=== PATIENT | male | born 1945 | race Caucasian/White ===

== ENCOUNTER 2018-12-30 11:03 | Inpatient (IN) ==
--- NOTE | 2018-12-30 11:34 | EKG Report ---
Test Performed on : 12/30/2018 11:32:26 AM Test Reason : syncope Blood Pressure : / mmHG Vent. Rate : 080 BPM Atrial Rate : 080 BPM P-R Int : 142 ms QRS Dur : 074 ms QT Int : 364 ms P-R-T Axes : 047 003 032 degrees QTc Int : 419 ms Normal sinus rhythm. Normal ECG When compared with ECG of 01-DEC-2018 09:44, premature ventricular complexes. are no longer present Unconfirmed Result
[2018-12-30 13:32] LABS: BASO# 0.01 X1000 (0.0-0.2); BASO% 0.2 % (0.0-0.8); EOS# 0.58 X1000 (0.0-0.7); HEMATOCRIT 37.6 % (42.0-52.0); HEMOGLOBIN 11.6 g/dL (14.0-18.0); LYMPH# 1.43 X1000 (1.2-3.4); LYMPH% 22.2 % (20.5-51.1); MCH 28.9 PG (27-31); MCHC 30.9 g/dL (33-37); MCV 93.5 FL (81-99); MONO# 0.54 X1000 (0.11-0.59); MONO% 8.4 % (1.7-9.3); NEUT# 3.88 X1000 (1.4-6.5); NEUT% 60.2 % (42.2-75.2); PLT 270 X1000 (130-400); RBC 4.02 XMIL (4.7-6.1); WBC 6.44 X1000 (4.8-10.8)
[2018-12-30 14:23] LABS: ALB/GLOB RATIO 1.2; CALCIUM 9.4 mg/dL (8.8-10.2); CREATININE 1.3 mg/dL (0.7-1.2); POTASSIUM 5.5 mmol/L (3.5-5.1); TOTAL BILIRUBIN 0.22 mg/dL (0.20-1.00); TOTAL PROTEIN 7.3 g/dL (6.3-8.3)
--- NOTE | 2018-12-30 17:16 | PROVIDER DOCUMENTATION ---
HPI-Syncope/Dizziness - General Chief Complaint: Syncope Stated Complaint: PASSED OUT Time Seen by Provider: 12/30/18 16:44 Allergies/Adverse Reactions: Patient Allergies Allergy/AdvReac Type Severity Reaction Status Date / Time No Known Allergies Allergy Verified 12/07/18 05:32 Home Medications: Home Medication List Medication Instructions Recorded Confirmed Last Taken Type Diclofenac Na D.r. [Voltaren] 75 mg PO BID 12/01/18 12/07/18 12/03/18 History Divalproex [Depakote] 250 mg PO BID 12/01/18 12/07/18 12/06/18 08:00 History LISINOpril [Prinivil] 5 mg PO DAILY 12/01/18 12/07/18 12/06/18 08:00 History Menthol [Absorbine Jr] 1 each TP PRN PRN 12/01/18 12/07/18 Unknown History Metoclopramide [Reglan] 10 mg PO AC + HS 12/01/18 12/07/18 12/06/18 08:00 History Mirtazapine [Remeron] 0.5 tab PO QHS 12/01/18 12/07/18 12/06/18 20:00 History Omeprazole [Prilosec] 40 mg PO DAILY 12/01/18 12/07/18 12/06/18 08:00 History Pitavastatin [Livalo] 2 mg PO DAILY 12/01/18 12/07/18 12/06/18 20:00 History Risperidone [Risperdal] 0.5 mg PO QHS 12/01/18 12/07/18 12/06/18 20:00 History Hydrocodone/APAP 7.5 mg/325 mg 1 each PO Q4H PRN #10 tablet 12/07/18 Unknown Rx [[place]-7.5] Levofloxacin [Levaquin] 500 mg PO ONCE 12/07/18 12/07/18 12/06/18 20:00 History Oxybutynin [Ditropan] 5 mg PO TID PRN #30 tablet 12/08/18 Unknown Rx - History of Present Illness-Syncope/Dizzy Nature of Presenting Problem: Pt is 73 yo male, with developmental delay, resides in senior care. According to ed case manager, around 10:00am today, pt was standing up talking to her and c/o dizziness, then fell backwards, ed case manager caught him and they both fell to the floor. Pt c/o R shoulder pain. Denies hitting head. Denies n/v. Denies loc. Alex e worker states he was alert and talking the entire time. Denies cp or sob. 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 Pt has pmh of HTN and hyperlipidemia. If witnessed syncope, by whom?: ed case manager at senior care Prior Episodes: reports: no prior history Timing: reports: gone now Position/Activity at time of episode: reports: standing Symptoms prior to episode: reports: lightheaded Context: reports: almost passed out Loss of Consciousness: no loss of consciousness Location of injury. (If syncope resulted in an injury.): reports: RUE Current Symptoms: reports: none/feels normal Recently Seen Here or By Another Healthcare Provider: No - Dizziness Patient usually:: reports: walks without assistance Review of Systems - Adult - REVIEW OF SYSTEMS - ADULT Constitutional: denies: fever Eyes: reports: no symptoms reported Ears, Nose, Mouth & Throat: reports: no symptoms reported Cardiovascular: denies: chest pain Respiratory: denies: shortness of breath Gastrointestinal: denies: abdominal pain, nausea, vomiting Genitourinary: reports: no symptoms reported Musculoskeletal: reports: joint pain (shoulder pain) Integumentary: reports: no symptoms reported Neurological: reports: dizziness/vertigo. denies: headache/migraines, numbness, syncope Psychiatric: denies: no symptoms reported Endocrine: reports: no symptoms reported Hematologic/Lymphatic: reports: no symptoms reported Allergic/Immunologic: reports: no symptoms reported All Other Systems: Reviewed and Negative Past History - Adult - PAST MEDICAL HISTORY-ADULT Review of Records: reports: Nursing Assessment Review, Medications Reviewed, Social history reviewed & non-contributory. Physical Exam-General - PHYSICAL EXAM-ADULT Initial Vital Signs Reviewed: Yes - CONSTITUTIONAL General Appearance: appears well, alert, no apparent distress - EYES Eyes: PERRL/EOMI, pink conjunctivae - HEAD, EARS, NOSE, MOUTH & THROAT HENMT: normocephalic/atraumatic, moist mucous membranes - NECK Neck: supple - RESPIRATORY Respiratory: lungs clear, normal breath sounds, no respiratory distress - CARDIOVASCULAR Cardiovascular: regular rate, rhythm - MUSCULOSKELETAL Back Exam: decreased range of motion (R shoulder--tender to all areas palpated, rom limited by pain, n/v intact) Peripheral Pulses: radial (R): 2+, radial (L): 2+ - SKIN Integumentary: normal color, normal turgor, warm/dry - NEUROLOGIC Neurologic: grossly normal - PSYCHIATRIC Psych/Mental Status: normal mood/affect Progress - PLAN OF CARE/RESULTS Progress/Plan/Lab Results: Vital Signs - 8 hr 12/30/18 18:09 12/30/18 21:00 12/30/18 22:00 Temperature 98.3 F Pulse Rate 87 82 73 Pulse Rate [Sitting] Pulse Rate [Supine] Respiratory Rate 18 14 19 Blood Pressure 93/65 128/79 121/77 Blood Pressure [Sitting] Blood Pressure [Supine] O2 Sat by Pulse Oximetry 96 96 94 L 12/30/18 23:00 12/30/18 23:56 Temperature Pulse Rate 85 Pulse Rate [Sitting] 129 H Pulse Rate [Supine] 130 H Respiratory Rate 20 Blood Pressure Blood Pressure [Sitting] 104/60 Blood Pressure [Supine] 103/57 O2 Sat by Pulse Oximetry 97 12/30/18 21:24 Stool Occult Blood (ANN-MARIE) - Final Stool Laboratory Results - last 24 hr 12/30/18 12/30/18 12/30/18 11:30 11:30 11:30 WBC 6.44 RBC 4.02 L Hgb 11.6 L Hct 37.6 L MCV 93.5 MCH 28.9 MCHC 30.9 L RDW Std Deviation 14.0 Plt Count 270 MPV 10.0 Immature Gran % (Auto) 0.0 Neut % (Auto) 60.2 Lymph % (Auto) 22.2 [place] % (Auto) 8.4 Eos % (Auto) 9.0 Baso % (Auto) 0.2 Immature Gran # (Auto) 0.00 Neut # (Auto) 3.88 Lymph # (Auto) 1.43 [place] # (Auto) 0.54 Eos # (Auto) 0.58 Baso # (Auto) 0.01 Sodium 143 Potassium 5.5 H Chloride 106 Carbon Dioxide 24 L Anion Gap 13 BUN 22 Creatinine 1.3 H Estimated GFR/1.73 m2 54 BUN/Creatinine Ratio 17 Glucose 92 Calculated Osmolality 288 Calcium 9.4 Magnesium 1.9 Total Bilirubin 0.22 AST 16 ALT 9 L Alkaline Phosphatase 69 Troponin T Total Protein 7.3 Albumin 4.0 Globulin 3.3 Albumin/Globulin Ratio 1.2 Urine Source Urine Color Urine Clarity Urine pH Ur Specific [place] Urine Protein Urine Ketones Urine Blood Urine Nitrite Urine Bilirubin Urine Urobilinogen Urine Microscopic RBC Urine WBC Urine Microscopic WBC Ur Epithelial Cells Urine Bacteria Urine Glucose 12/30/18 12/30/18 11:30 20:24 WBC RBC Hgb Hct MCV MCH MCHC RDW Std Deviation Plt Count MPV Immature Gran % (Auto) Neut % (Auto) Lymph % (Auto) [place] % (Auto) Eos % (Auto) Baso % (Auto) Immature Gran # (Auto) Neut # (Auto) Lymph # (Auto) [place] # (Auto) Eos # (Auto) Baso # (Auto) Sodium Potassium Chloride Carbon Dioxide Anion Gap BUN Creatinine Estimated GFR/1.73 m2 BUN/Creatinine Ratio Glucose Calculated Osmolality Calcium Magnesium Total Bilirubin AST ALT Alkaline Phosphatase Troponin T < 0.010 Total Protein Albumin Globulin Albumin/Globulin Ratio Urine Source CLEAN CATCH Urine Color YELLOW Urine Clarity CLEAR Urine pH 6.5 Ur Specific [place] 1.020 Urine Protein 30 A Urine Ketones NEGATIVE Urine Blood TRACE-INTACT A Urine Nitrite NEGATIVE Urine Bilirubin NEGATIVE Urine Urobilinogen 1.0 Urine Microscopic RBC <10 Urine WBC SMALL A Urine Microscopic WBC <10 Ur Epithelial Cells <10 Urine Bacteria NEGATIVE Urine Glucose NEGATIVE Orders Category Date Time Status Cardiac Monitoring DIRECTED Care 12/30/18 19:03 Active Orthostatic Vital Signs NOW Care 12/30/18 17:09 Active Orthostatic Vital Signs NOW Care 12/30/18 19:03 Active CHEST-2 VIEWS [RAD] Stat Exams 12/30/18 17:[address] HEAD W/O CONTRAST [CT] Stat Exams 12/30/18 19:02 Completed TRAUMA SHOULDER RIGHT [RAD] Stat Exams 12/30/18 16:57 Completed BLOOD CULTURE [BLDCUL] Stat Lab 12/30/18 23:52 Uncollected CBC WITH ELECTRONIC DIFF [HEME] Stat Lab 12/30/18 11:30 Completed COMPREHENSIVE METABOLIC PANEL [CHEM] Stat Lab 12/30/18 11:30 Completed LACTATE, PLASMA [CHEM] Stat Lab 12/30/18 23:52 Uncollected MAGNESIUM [CHEM] Stat Lab 12/30/18 11:30 Completed OCCULT BLOOD SCREENING [STOOL] Stat Lab 12/30/18 21:24 Completed TROPONIN T Stat Lab 12/30/18 11:30 Completed URINALYSIS [URINALYSIS] Stat Lab 12/30/18 20:22 Ordered 0.9% Sodium Chloride Inj [Ns] 500 ml Med 12/30/18 23:52 Discontinued IV 999 mls/hr Albuterol 0.5% INH Conc [Albuterol 0.5% INH Conc For Med 12/30/18 22:28 Discontinued Hyperkalemia] 25 mg INH NOW ONE Piperacillin/Tazobactam [Zosyn] 3.375 gm Med 12/30/18 23:53 Discontinued 0.9% Sodium Chloride Inj [Ns] 50 ml IV NOW Aerosol Treatments Routine Oth 12/30/18 22:29 Completed Aerosol Treatments Stat Oth 12/30/18 22:29 Completed Generalized Adult Illness >60 Stat Oth 12/30/18 11:28 Ordered EKG [EKG] Stat Ther 12/30/18 11:29 Draft EKG [EKG] Stat Ther 12/30/18 19:03 Ordered 2353- BP 83/66 and HR 133 (sinus tachycardia). Discussed admission with pt who is in agreement. skilled nursing staff member asks that I allow him to speak with senior care leader/epic manager before I call HPS. Pt is awake and alert at this time. 0007- Dr. Esteban at bedside, pt still hypotensive but no change in neurological status is noted since previous assessment. Result Diagrams: 12/30/18 11:30 12/30/18 11:30 - XRAY 1 XRAY Study: Shoulder ([facility] [address] , [address], [place] [address] Department of Imaging Patient: MARIE PRADO Date: 12/30/18#: [id number] : 5ADM Status: PRE ERAcct#: [id number] Age/Sex: 73/MRoom/Bed: Loc: ED Ordering Physician: Dorys Webb Family Physician: Wally Cevallos MD Reason for Procedure: fall; R shoulder pain Signed TRAUMA SHOULDER RIGHT - 12/30/2018 INDICATION: fall; R shoulder pain TECHNIQUE: Three views COMPARISON: None FINDINGS: Bones are intact and normally aligned. There are mild degenerative changes of the glenohumeral joint. Acromioclavicular joint is well-preserved. IMPRESSION: No acute injury. Electronically signed by Clifton Valencia 12/30/2018 6:07 PM 12/30/18 1807 Interpreting Physician: Clifton Valencia MD Dictated Date/Time: 12/30/18 180 cc: Dorys Webb; Wally Cevallos MD) 2 XRAY Study: Chest ([facility] [address], [address], [place] [address] Department of Imaging Patient: MARIE PRADO Date: 12/30/18#: [id number] : 1945DM Status: PRE ERAcct#: [id number] Age/Sex: 73/MRoom/Bed: Loc: ED Ordering Physician: Dorys Webb Family Physician: Wally Cevallos MD Reason for Procedure: dizziness Signed CHEST- 2 VIEWS - 12/30/2018 INDICATION: dizziness COMPARISON: None FINDINGS: The lungs are normally expanded and clear. Heart size and mediastinal contours are normal. No pneumothorax or pleural effusion. IMPRESSION: Negative exam. Electronically signed by Clifton Valencia 12/30/2018 6:35 PM 12/30/18 1835 Interpreting Physician: Clifton Valencia MD Dictated Date/Time: 12/30/18 183 cc: Dorys Webb; Wally Cevallos MD) - CT/MRI 1 CT Study: Head ([facility] [address], [address], [place] [address] Department of Imaging Patient: MARIE PRADO Date: 12/30/18#: [id number] : 5ADM Status: PRE ERAcct#: [id number] Age/Sex: 73/MRoom/Bed: Loc: ED Ordering Physician: Haseeb Lamas Family Physician: Wally Cevallos MD Reason for Procedure: dizziness, near syncope Signed CT HEAD W/O CONTRAST - 12/30/2018 INDICATION: dizziness, near syncope COMPARISON: None FINDINGS: The ventricles and sulci are normal in size and contour. No intracranial mass or hemorrhage. The skull is intact. The sinuses mastoids and middle ears are clear. IMPRESSION: Negative exam. This exam was performed using automated exposure control, adjustment of mA or kV according to patient size, and/or use of iterative reconstruction technique Electronically signed by Clifton Valencia 12/30/2018 8:03 PM 12/30/182002 Interpreting Physician: Clifton Valencia MD Dictated Date/Time: 12/30/181999 cc: Haseeb Lamas; Wally Cevallos MD) - CONSULTS/PCP/HOSPITALIST Notification #1 *Consult/PCP/Hospitalist*: Dr. Esteban Time Discussed: 00:05 Reason/Comments: admission Consult Disposition: Admit - CHANGE OF SHIFT REPORT (ED Provider) 1 Report Given and Care Transferred to:: [place] Time of Transfer: 17:58 Departure - Departure Date of Disposition Decision: 12/31/18 Time of Disposition Decision: 00:05 DIAGNOSIS: Syncope Qualifiers: Syncope type: unspecified Qualified Code(s): R55 - Syncope and collapse Hypotension Qualifiers: Hypotension type: unspecified hypotension type Qualified Code(s): I95.9 - Hypotension, unspecified Disposition: ADMITTED INPATIENT 09 Certified Medical Emergency: Emergent Condition: Stable Referrals and Follow-Ups: Wally Cevallos MD [Primary Care Provider] - - Critical Care Note This patient required my direct & personal management of CC.: No Attestation - Physician/ KRYSTAL Attestation Patient care was provided by Advanced Practice Provider:: Yes Advanced Practice Provider:: Haseeb Lamas Advanced Practice Provider documentation review:: The Mid-level provider documentation, treatment plan and medical decision making was reviewed by the physician who agrees with all treatment and medical decision making by the MLP. The physician spent face to face time with patient:: No Advanced Practice Provider documentation review:: Supervising physician onsite and consulted in the evaluation and care of this patient. The physician did not have a face to face encounter with the patient.
--- NOTE | 2018-12-30 17:22 | ED EKG INTERP ---
This chart was entered by Jenn Cannon Scribe, acting as scribe for Wally Joiner MD. EKG Interpretation - EKG Time of EKG reading by physician:: 11:36 EKG Read and Signed by:: Wally Joiner EKG Interpretation (*Must complete 3 of following elements*): Normal Rate: 80 Rhythm: NSR [place]: normal QRS: normal [place] Interval: normal ST Wave: normal Attestation - Physician/ KRYSTAL Attestation Patient care was provided by Advanced Practice Provider:: Yes Advanced Practice Provider documentation review:: The Mid-level provider documentation, treatment plan and medical decision making was reviewed by the physician who agrees with all treatment and medical decision making by the MLP. The physician spent face to face time with patient:: Yes Advanced Practice Provider documentation review:: Supervising physician onsite and consulted in the evaluation and care of this patient. The physician did have a face to face encounter with the patient. This chart was documented by the indicated scribe, (Jenn Cannon Scribe) and accurately reflects the services I performed and decisions made by Rhys campos Robert W., MD, as attested by the provider's signature.
--- NOTE | 2018-12-30 18:09 | Diag Imaging Result Doc PS360 ---
TRAUMA SHOULDER RIGHT - 12/30/2018 INDICATION: fall; R shoulder pain TECHNIQUE: Three views COMPARISON: None FINDINGS: Bones are intact and normally aligned. There are mild degenerative changes of the glenohumeral joint. Acromioclavicular joint is well-preserved. IMPRESSION: No acute injury. Electronically signed by Clifton Valencia 12/30/2018 6:07 PM
--- NOTE | 2018-12-30 18:37 | Diag Imaging Result Doc PS360 ---
CHEST-2 VIEWS - 12/30/2018 INDICATION: dizziness COMPARISON: None FINDINGS: The lungs are normally expanded and clear. Heart size and mediastinal contours are normal. No pneumothorax or pleural effusion. IMPRESSION: Negative exam. Electronically signed by Clifton Valencia 12/30/2018 6:35 PM
--- NOTE | 2018-12-30 20:06 | Diag Imaging Result Doc PS360 ---
CT HEAD W/O CONTRAST - 12/30/2018 INDICATION: dizziness, near syncope COMPARISON: None FINDINGS: The ventricles and sulci are normal in size and contour. No intracranial mass or hemorrhage. The skull is intact. The sinuses mastoids and middle ears are clear. IMPRESSION: Negative exam. This exam was performed using automated exposure control, adjustment of mA or kV according to patient size, and/or use of iterative reconstruction technique Electronically signed by Clifton Valencia 12/30/2018 8:03 PM
[2018-12-30 20:32] LABS: URINE SOURCE CLEAN CATCH
[2018-12-30 20:45] LABS: BILIRUBIN URINE NEGATIVE (NEGATIVE); BLOOD URINE TRACE-INTACT (NEGATIVE); CLARITY CLEAR (CLEAR); COLOR YELLOW; GLUCOSE URINE NEGATIVE (NEGATIVE); KETONE URINE NEGATIVE (NEGATIVE); LEUKOCYTES URINE SMALL (NEGATIVE); NITRITE URINE NEGATIVE (NEGATIVE); PH URINE 6.5; PROTEIN URINE 30 mg/dL (NEGATIVE)
[2018-12-30 20:47] LABS: URINE BACTERIA NEGATIVE /HFP; URINE EPITHELIAL CELLS <10 /HPF (<10); URINE RBC <10 /HPF (<10); URINE WBC <10 /HPF (<10)
[2018-12-30] MEDS ORDERED: ALBUTEROL 0.5% INH CONC FOR HYPERKALEMIA INH ONE (22:28)
[2018-12-30] MEDS ORDERED: NS 500 ML IV ONE (23:52)
[2018-12-30] MEDS ORDERED: ZOSYN 3.375 GM in NS 50 ML IV ONE (23:53)
[2018-12-31] MEDS: LOVENOX SUBQ SCH (01:15)
[2018-12-31] MEDS ORDERED: SODIUM CHLORIDE IV ONE (01:26)
--- NOTE | 2018-12-31 03:02 | HISTORY AND PHYSICAL ---
PRESENTING COMPLAIN: Blacking out. HISTORY OF PRESENTING COMPLAINT: Mr. Snow is a 73-year-old male who is known to have mental incapacity or mental disability and lives in a fpc by name of [facility]. He also has a history of hypertension, recently treated for adenocarcinoma of the prostate status post radical prostatectomy. Cook catheter was removed about 10 days ago. Seems to have been in his regular state of health until this morning. The patient had gone for work shop, and I understand at the workshop after he stood up and started walking, he felt dizzy and gradually went down, blacked out. The patient recovered his consciousness immediately but according to the healthcare provider, the patient has had 2 urine incontinence accidents today. Upon presenting to the emergency department, patient was evaluated. Initial vitals revealed blood pressure was 116/80, pulse of 80, respirations 16, temperature 97.7 degrees. However, during the course of the ER stay, the patient's initial labs did reveal a potassium of 5.5. The patient was nebulized with albuterol. However, during the rest of the hospital stay, patient was found to be extremely tachycardic and started becoming hypotensive. Has a lactate level of 6.2. We have been consulted for admission to rule out possible sepsis. PAST MEDICAL HISTORY: 1. Dyslipidemia. 2. Hypertension. 3. History of mental disability. 4. Suspected psychiatric disorder. PAST SURGICAL HISTORY: Recent radical prostatectomy for adenocarcinoma of the prostate. MEDICATION LIST: 1. Lisinopril 5 mg daily. 2. Livalo 2 mg daily. 3. Pravastatin 40 mg daily. 4. Tramadol. 5. Depakote. 6. Risperdal. FAMILY HISTORY: Unremarkable. SOCIAL HISTORY: Patient chews tobacco, but denies any alcohol or any illicit drugs. Patient is a resident of [facility]. REVIEW OF SYSTEMS: Fourteen-point review of system conducted with Mr. Snow, is unremarkable except what we have in the HPI. Specifically, he denies any chest pain. He denies shortness of breath. He denies any diarrhea or constipation. No headaches. PHYSICAL EXAMINATION: VITAL SIGNS: Blood pressure 91/50, pulse is 120, respiration is 19, temperature is 98.3 degrees. GENERAL: Mr. Snow is a 73-year-old male. He is in bed. He did not seem to be in any cardiopulmonary distress. HEENT: Mucosa is dry, anicteric, acyanotic. NECK: Supple. There is no JVD. RESPIRATORY SYSTEM: There is good air entry bilaterally. No crepitations, no rhonchi. CARDIOVASCULAR: Regular rate and rhythm. There is no murmurs, no rubs, no gallops. GASTROINTESTINAL: Abdomen is soft, nontender. Bowel sounds are present. There is mild tenderness to the right costovertebral angle. There is also some new surgical scar on the lower abdomen consistent of the prostate surgery. EXTREMITIES: No pedal edema. Distal pulses present. COOLER SUPERVISOR: Patient is awake, alert, oriented to person, to time, and to place. Motor is 5/5 in all extremities. Sensation is intact. PSYCHIATRIC: Patient was cooperative but does not seem to have adequate insight and judgment. LABORATORY DATA: WBC is 6.44, hemoglobin is 11.6, platelet count of 270,000. Chemistry is also reviewed, creatinine is 1.3. Lactate is 6.2. So far, the urine does show small WBC, negative nitrate. IMAGING DATA: A CT scan of the abdomen and pelvis has been ordered, is still pending, yet to be done. A CT scan of the head was unremarkable. A chest x-ray is negative. X- ray of the right shoulder showed no fractures. ASSESSMENT: Mr. Snow is a mentally disabled gentleman who lives at a fpc. His presentation initially seems to have been syncope. However, during the hospital course, he has been extremely hypotensive, tachycardic, showing signs of possible septic shock. The patient just had a recent surgery of prostate. The concern is any intra-abdominal infection. 1. Hypotension, concerning for septic shock. The patient was given IV fluids bolus and blood cultures have been done as well as urine culture. Zosyn has been given. We are going to continue with the fluid resuscitation. The patient will be admitted to the ICU. We will continue with the IV antibiotics and wait for the culture results. The hypotension could also be as a result of drug-induced since he is on antihypertensive and also other psychotropic medications that could potentially reduce his blood pressure. In any case, we are going to treat this as infectious until cultures have been negative. 2. Syncopal episode on presentation. We think this is related to either neurally mediated vasovagal syncope or orthostatic hypotension. 3. Clinical volume depletion. We are going to continue with the intravenous fluids. 4. Acute kidney injury. We will continue with adequate hydration and avoid any nephrotoxic drugs. 5. History of psychiatric disorders. Patient is on antipsychotic medications. All will be started. 6. Elevated plasma lactate. The patient, however, does not seem to be acidotic. This could be all from volume depletion. We are going to continue with the intravenous fluids and await the culture report. 7. Recently treated adenocarcinoma of the prostate status post radical prostatectomy. Urology has been consulted. In general, we are going to admit Mr. Snow to the ICU. We will continue with the adequate IV resuscitation, use pressors if needed. Continue the patient on Zosyn. Await for the cultures and we have ordered a CT scan. I will follow up on the results. 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 With the hypotension, syncope and hypoxemia; concerns will include PE as well. Will do ABG, d-dimer, and doppler US of lower extremities. Patient cant do CTA due to renal failure. We may need to do perfusion studies as well. MTDD
[2018-12-31] MEDS: NS 1,000 ML IV SCH ×3 (03:15→14:16)
[2018-12-31] MEDS: LEVOPHED 8 MG in D5 1/2 NS 250 ML IV SCH ×2 (04:33→05:14)
[2018-12-31 05:00] LABS: BASO# 0.02 X1000 (0.0-0.2); BASO% 0.2 % (0.0-0.8); EOS# 0.07 X1000 (0.0-0.7); EOS% 0.8 % (0.0-10.0); HEMOGLOBIN 9.8 g/dL (14.0-18.0); IMM GRAN# 0.05 X1000 (0.0-0.04); IMM GRAN% 0.5 % (0.0-0.5); LYMPH# 1.08 X1000 (1.2-3.4); LYMPH% 11.8 % (20.5-51.1); MCH 29.4 PG (27-31); MCHC 31.6 g/dL (33-37); MCV 93.1 FL (81-99); MONO# 1.05 X1000 (0.11-0.59); MONO% 11.5 % (1.7-9.3); MPV 9.7 FL (7.4-10.4); NEUT# 6.86 X1000 (1.4-6.5); NEUT% 75.2 % (42.2-75.2); PLT 276 X1000 (130-400); RBC 3.33 XMIL (4.7-6.1); RDW 14.5 % (11.5-14.5); WBC 9.13 X1000 (4.8-10.8)
[2018-12-31 05:19] LABS: AGAP 15; ALB/GLOB RATIO 1.2; ALBUMIN 3.4 g/dL (3.5-5.0); ALKALINE PHOSPHATASE 59 U/L (32-122); BUN 21 mg/dL (8-22); CALCIUM 8.5 mg/dL (8.8-10.2); CHLORIDE 111 mmol/L (98-107); COSMO 292; CREATININE 1.5 mg/dL (0.7-1.2); ESTIMATED GFR 46; GLUCOSE 136 mg/dL (70-104); GOT 13 U/L (10-34); GPT 7 U/L (10-44); POTASSIUM 4.1 mmol/L (3.5-5.1); SODIUM 144 mmol/L (136-145); TCO2 18 mmol/L (25-35); TOTAL BILIRUBIN < 0.15 mg/dL (0.20-1.00); TOTAL PROTEIN 6.2 g/dL (6.3-8.3)
[2018-12-31] MEDS ORDERED: VANCOMYCIN IV PER PHARMACY MISC SCH (06:30)
--- NOTE | 2018-12-31 06:47 | Diag Imaging Result Doc PS360 ---
CT ABDOMEN/PELVIS W/O CONTRAST - 12/31/2018 INDICATION: sepsis. r/o intraabdominal infection COMPARISON: None FINDINGS: Aside from some mild linear atelectasis, the lung bases are clear. Heart size is normal with no pericardial effusion. No radiodense renal stones. No hydronephrosis or hydroureter. There is a small cyst in the lower pole the left kidney. No bowel obstruction or inflammation. Normal appendix. Urinary bladder is collapsed. Prostate is absent. Rectum is normal. There are moderate degenerative changes of the spine. No acute or suspicious bony lesion. IMPRESSION: No acute disease. This exam was performed using automated exposure control, adjustment of mA or kV according to patient size, and/or use of iterative reconstruction technique Electronically signed by Clifton Valencia 12/31/2018 6:45 AM
[2018-12-31 06:50] LABS: ALLEN TEST NO; BE -5.4 mmoll (-3.0-3.0); BLOOD TYPE ARTERIAL; HCO3-(ACT) 20.7 mmoll (20.0-26.0); METHB 0.4 % (0.0-1.5); O2(CT) 12.9 mL/dL (15.0-23.0); O2HB 94.7 % (95.0-99.0); PCO2(98.6) 29 mmHg (35-45); PO2(98.6) 76 mmHg (60-100); SAMPLE BLOOD; SAO2 95.3 % (95.0-100.0); THB 9.6 g/dL (11.5-17.4); pH(98.6) 7.41 (7.35-7.45)
[2018-12-31 06:51] LABS: MODALITY ROOM AIR
[2018-12-31] MEDS: MAXIPIME 1 GM in NS 50 ML IV SCH ×3 (07:52→21:32)
--- NOTE | 2018-12-31 07:57 | Diag Imaging Result Doc PS360 ---
CT THORAX W/O CONTRAST - 12/31/2018 INDICATION: hypoxemia COMPARISON: 12/30/2018 FINDINGS: There is some mild dependent atelectasis. No adenopathy. Heart and great vessels are normal. No infiltrates. Bones are intact. IMPRESSION: Negative exam. This exam was performed using automated exposure control, adjustment of mA or kV according to patient size, and/or use of iterative reconstruction technique Electronically signed by Clifton Valencia 12/31/2018 7:54 AM
[2018-12-31] MEDS ORDERED: VANCOMYCIN 1,800 MG in NS 250 ML IV ONE (08:00)
[2018-12-31] MEDS ORDERED: ZOSYN 3.375 GM in NS 50 ML IV SCH (08:00)
[2018-12-31] MEDS: DEPAKOTE PO SCH ×2 (08:00→21:27)
[2018-12-31] MEDS: LIVALO PO SCH (08:00)
--- NOTE | 2018-12-31 09:24 | PROGRESS NOTE ---
DATE: 12/31/2018 The patient is a 73-year-old, white man who resides at [facility]. He had a syncopal episode last evening and presented to the emergency room. Serum lactate was elevated at 6.5 and he was hypotensive. He was admitted for treatment with intravenous fluids and for evaluation to rule out sepsis. Laboratory this morning, hemoglobin 9.8, hematocrit 31.0, white blood count 9100, with 75% neutrophils. D-dimer was mildly elevated at 0.74. Blood gases, pH 7.41, pCO2 29, PO2 76, lactate 5.3 on room air. Urinalysis, small amount of WBCs. Sodium 144, potassium 4.1, chloride 111, CO2 18, BUN 21, creatinine 1.5, glucose 136. Chest CT and abdominal CT were unremarkable. Head CT was normal also. Chest x-ray was normal. Shoulder x-ray was done because of a fall and complaints of pain. This was normal with no evidence of bony injury. He was admitted by the hospitalist last evening. PLAN: Continue evaluation. Vital signs are stable this morning. Blood pressure is 118/60. Home medicine includes lisinopril 5 mg 1 daily. This will be held. Blood cultures were done and are pending. He is on cefepime 1 g q.8 hours. He also is on vancomycin 1400 mg q.36 hours. He is on Lovenox 40 mg subcutaneous q.24 hours. cc: Wally Cevallos MD
--- NOTE | 2018-12-31 10:16 | Diag Imaging Result Doc PS360 ---
CHEST-PORTABLE - 12/31/2018 INDICATION: dyspnea COMPARISON: 12/30/2018 FINDINGS: The lungs are normally expanded and clear. Heart size and mediastinal contours are normal. No pneumothorax or pleural effusion. IMPRESSION: Negative exam. Electronically signed by Clifton Valencia 12/31/2018 10:13 AM
[2018-12-31] MEDS ORDERED: SOLU-MEDROL IV ONE (15:07)
[2018-12-31] MEDS ORDERED: BENADRYL IV ONE (15:08)
[2018-12-31] MEDS ORDERED: STERILE WATER INJ. INJ ONE (15:44)
[2018-12-31 16:10] LABS: URINE SOURCE CATH
[2018-12-31 16:13] LABS: BILIRUBIN URINE NEGATIVE (NEGATIVE); BLOOD URINE NEGATIVE (NEGATIVE); COLOR STRAW; GLUCOSE URINE NEGATIVE (NEGATIVE); KETONE URINE NEGATIVE (NEGATIVE); LEUKOCYTES URINE SMALL (NEGATIVE); NITRITE URINE NEGATIVE (NEGATIVE); PROTEIN URINE NEGATIVE (NEGATIVE); SP GRAVITY URINE 1.002; TURBIDITY URINE CLEAR (CLEAR); UR EPITHELIAL CELLS <10 /HPF (<10); URINE BACTERIA NEGATIVE /HPF; URINE WBC <10 /HPF (<10); UROBILINOGEN URINE NORMAL (NORMAL)
[2018-12-31 16:36] LABS: URINE CASTS NONE SEEN; URINE CRYSTALS NONE SEEN; URINE SMALL ROUND CELLS RENAL PRESENT; URINE YEAST NONE SEEN
--- NOTE | 2018-12-31 17:52 | CONSULTATION ---
DATE OF CONSULTATION: 12/31/2018 ATTENDING AND REFERRING PHYSICIAN: Wally Cevallos MD HISTORY OF PRESENT ILLNESS: This 73-year-old male lives in a care home for mental disability and probable psychiatric disorder. He had a syncopal episode and was evaluated in the emergency room, where he was noted to be hypotensive and had an elevated lactate. He was admitted for the syncopal episode and sepsis syndrome. The patient underwent laparoscopic robot-assisted radical retropubic prostatectomy on 12/08/2018. 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 His Cook catheter was removed 7 days after the procedure. The patient denies any shortness of breath or lower extremity pain. The patient is constantly dribbling urine. PAST MEDICAL HISTORY: Elevated cholesterol hypertension, mental disability, psychiatric disorder, prostate cancer. CURRENT MEDICATIONS: Documented on the chart and include lisinopril, Livalo, pravastatin, tramadol, Depakote, and Risperdal. PAST SURGICAL HISTORY: As noted in the HPI. SOCIAL HISTORY: He lives in a care home. He chews tobacco, but no alcohol use. ALLERGIES: No known drug allergies. REVIEW OF SYSTEMS: He currently states he feels well. He states he is sleepy. There is not any history of diabetes, strokes, or seizures. PHYSICAL EXAMINATION: General: A mildly obese, age-apparent, normally developed, white male, who is cooperative. HEENT: Normal for age. There does appear to be some periorbital edema. Lungs: Clear. Cardiovascular: Tachycardiac, regular rate and rhythm. Abdomen: Protuberant soft, nontender. No hepatosplenomegaly or masses. Normal bowel sounds. Genitourinary: Uncircumcised male. There is urine coming out of the meatus. Both testes are down and palpably normal. Rectal: Exam was deferred. Extremities: No clubbing, cyanosis, or edema. Neurological: No focal deficits. DIAGNOSTIC STUDIES: He has a white count of 9.13, hemoglobin 9.8, hematocrit of 31, and platelets are 276,000. Serum sodium is 144, potassium 4.1, chloride 111, bicarbonate 18, BUN 21, creatinine 1.5. A CT scan of his head, chest, abdomen, and pelvis are normal, except the prostate is surgically absent. IMPRESSION: 1. Probable overflow urinary incontinence. 2. Status post laparoscopic robot-assisted radical retropubic prostatectomy in late November 2018. PLAN: Place Cook catheter. After talking with the patient and getting him to relax, the catheter was able to be pushed up into the bladder. Over 200 mL came out in less than 5 minutes. Recommend keeping the Cook for at least 5 days. Thank you for this consultation. cc: MD Wally Mahajan MD
[2018-12-31] MEDS ORDERED: RISPERDAL PO SCH (21:00)
[2018-12-31] MEDS ORDERED: REMERON SOLTAB PO SCH (21:00)
[2019-01-01] MEDS: NS 1,000 ML IV SCH (01:25)
[2019-01-01] MEDS: LOVENOX SUBQ SCH (01:25)
[2019-01-01 05:09] LABS: HEMATOCRIT 33.4 % (42.0-52.0); HEMOGLOBIN 10.2 g/dL (14.0-18.0); LYMPH# 0.92 X1000 (1.2-3.4); LYMPH% 17.3 % (20.5-51.1); MCH 28.3 PG (27-31); MCHC 30.5 g/dL (33-37); MCV 92.8 FL (81-99); MONO# 0.31 X1000 (0.11-0.59); MONO% 5.8 % (1.7-9.3); NEUT# 4.09 X1000 (1.4-6.5); NEUT% 76.9 % (42.2-75.2); PLT 240 X1000 (130-400); WBC 5.32 X1000 (4.8-10.8)
[2019-01-01] MEDS: MAXIPIME 1 GM in NS 50 ML IV SCH (05:33)
--- NOTE | 2019-01-01 08:18 | PROGRESS NOTE ---
DATE: 01/01/2019 OBJECTIVE: Vital signs: Stable with temperature 98.4 degrees, heart rate 63, respirations, blood pressure 160/80, O2 saturation on 2 L nasal oxygen 94%. LABORATORY DATA: Lactate is down to 0.9. He is feeling well with no pain or complaint. He has had some bladder spasms since insertion of the Cook. Dr. Gann would like to leave the Cook in for 5 days. He is eating well. PLAN: Transfer to the floor, ambulate, consider discharge home this afternoon. cc: Wally Cevallos MD
[2019-01-01] MEDS ORDERED: SALINE LOCK IV FLUID XX ONE (08:38)
[2019-01-01] MEDS: LIVALO PO SCH (08:45)
[2019-01-01] MEDS: DEPAKOTE PO SCH (08:45)
[2019-01-01] MEDS ORDERED: PRINIVIL PO SCH (09:00)
[2019-01-01] MEDS ORDERED: KEFLEX PO SCH (14:00)
--- NOTE | 2019-01-01 15:38 | Extremity Venous Study ---
PROCEDURE NAME: Venous U/S Bilateral Legs - 12/31/2018 REFERRING PHYSICIAN: Dr. Esteban. READING PHYSICIAN: Dr. Jorgensen. HYDROPULPER: Dada. INDICATION: Shortness of breath. FINDINGS: The deep and superficial veins of both lower extremities were imaged throughout their course. They are compressible, patent and without thrombus. INTERPRETATION: No DVT or SVT of either lower extremity. cc: MD Elias Rothman MD Robert Allen, MD
[2019-01-01 16:11] VITALS: BP 139/74
--- NOTE | 2019-01-01 19:00 | DISCHARGE SUMMARY ---
ADMISSION DATE: 12/31/2018 DISCHARGE DATE: 01/01/2019 FINAL DIAGNOSES: Lethargy, hypotension, elevated plasma lactate, mental retardation, urinary retention, recent prostatectomy, consultation with Dr. Gann. HISTORY: This is the first recent [facility] 1st recent [facility] admission for this 73-year-old white man who presented to the emergency room with lethargy and hypotension. He was hydrated and felt better, but because of markedly elevated serum lactate of 6.5, he was admitted for further evaluation and treatment to intensive care unit. He was placed on cefepime and vancomycin. After hydration, his blood pressure improved. INITIAL LABORATORY: Hemoglobin 11.6, hematocrit 37.6, white blood count 6400. Sodium 144, potassium 4.1, BUN 21, creatinine 1.5, calcium 8.5, total bilirubin less than 0.15, total protein 6.2, albumin 3.4, plasma lactate 6.8. TSH was 2.75. HOSPITAL COURSE: He remained afebrile. Serum lactate decreased to 0.9 this morning. He has been eating well and ambulating. He was transferred to the medical floor this morning. He has continued to do well. He was discharged home this afternoon on p.o. Keflex. Blood cultures are pending. DISCHARGE INSTRUCTIONS: He is to return to the office in 1 week or as needed for followup. cc: Wally Cevallos MD
[2019-01-01] MEDS ORDERED: VANCOMYCIN 1,400 MG in NS 250 ML IV SCH (20:00)
== END 2019-01-01 18:40 | disposition home or self-care (01) | DRG 641 ==
LOC: ED 11:03 → SUATTDRO 12-31 00:32 → EDIPHOLD 12-31 00:32 → ICU 12-31 10:50 → 4N 01-01 13:47
PROVIDERS: ADMIT Family Medicine; ATTEND Family Medicine
CPT/HCPCS: 70450; 71010; 71020; 71045; 71046; 71250; 73030; 74176; 80053; 81001; 82270; 82805; 83605; 83735; 84443; 84484; 85025; 85379; 87040; 87088; 87275; 87276; 87804; 93005; 93970; 94640; 96365; 96366; 96367; 96368; 96372; 99285; A9270; J0692; J1200; J1650; J2543; J2930; J3370; J7030; J7050